=== PATIENT | male | born 1985 | race Caucasian/White ===

== ENCOUNTER 2017-02-19 13:05 | Day surgery (SDC) | payer BC, MEDICAID, OTHER ==
[~2017-02-19] VITALS: Ht 172.7 cm; Wt 161.7 kg
[2017-02-19] MEDS ORDERED: ibuprofen (15:16)
[2017-02-19 15:18] VITALS: Ht 172.7 cm; Wt 161.7 kg
[2017-02-19] MEDS ORDERED: PROPOFOL 20 ML ONE (15:39)
[2017-02-19] MEDS ORDERED: LIDOCAINE 2% (SDV) 5 ML INJ ONE (15:40)
[2017-02-19] MEDS ORDERED: MIDAZOLAM 1 MG/ML 2 ML INJ ONE (15:40)
[2017-02-19 15:52] VITALS: BP 119/55; PULSE 63; RESP 18
[2017-02-19 17:00] VITALS: BP 138/89; PULSE 62; RESP 12
--- NOTE | 2017-02-19 22:17 | GILP ---
DATE OF PROCEDURE: 02/19/2017 DATE: 02/19/2017. NAME OF PROCEDURE: Colonoscopy with biopsies. SURGEON: Silvia José MD. PREMEDICATION: Monitored anesthesia care by anesthesiologist. INSTRUMENT USED: Olympus colonoscope. PREPARATION: Adequate. TECHNIQUE: After informed consent, with the patient/relatives understanding the procedure, its indic ations potential risks and complications, including but not limited to: allergic reaction, bleeding, perforation, infection, missed lesions, and after all pertinent questions were answered to the daniela ent's satisfaction, the patient/relatives signed the witnessed informed consent. Following this, premedication was administered slowly IV push by under careful cardiovascular and re spiratory monitoring with pulse oximetry, automatic blood pressure and nailer machine. Once the sedati ve effect was achieved, the patient was placed in the left lateral decubitus position, digital recta l examination was performed. The colonoscope was then introduced and advanced under visual control throughout all segments of the colon including: the rectum, sigmoid, descending colon, splenic flexu re, transverse colon, hepatic flexure, ascending colon and finally reaching the cecum which was sherly rly identified by transillumination, finger indentation and the ileocecal valve. Careful examinatio n of the mucosa of the lower gastrointestinal tract both on insertion as well as withdrawal of the i nstrument disclosed the following findings: Rectal Examination: No evidence of perirectal disease, no masses. Colonic Mucosa: The colonic mucosa is remarkable for erythema, edema, and submucosal hemorrhagic ch anges in a segmental distribution in the sigmoid colon. The area coincides with what had previously been thought to represent diverticulitis. I see only occasional diverticula in the area and there is no luminal compromise at this point. The remainder of the colon mucosa is entirely unremarkable. The ileocecal valve was clearly identified and appears unremarkable. The instrument was withdrawn reexamining the mucosa in detail. No additional abnormalities are noted with the exception of mode rate sized internal hemorrhoids. The instrument was then withdrawn, the patient tolerated the procedure well and was transferred out of the [facility]oscopy Suite awake and in good condition to continue recovery under observation. IMPRESSION: Segmental erythema, some mucosal hemorrhagic changes in the sigmoid colon. Residual fr om previous episode of diverticulitis versus possibility of segmental inflammatory bowel disease. B iopsies obtained. PLAN: Pathology will be reviewed as soon as available. The patient will be followed up as an outpa tient. Further recommendation will depend on the patient's clinical course as well as review of pat treygy. Dictated By: SILVIA JOSÉ MS/NTS Conf#: [id number] DID#: [id number] CC: SILVIA JOSÉ;*EndCC*
== END 2017-02-19 17:28 | disposition home or self-care (01) ==
LOC: GIL 13:05
PROVIDERS: ATTEND Internal Medicine Gastroenterology
DX: K57.90 Diverticulosis of intestine, part unspecified, without perforation or abscess without bleeding (principal); I10 Essential (primary) hypertension; E78.5 Hyperlipidemia, unspecified; E66.01 Morbid (severe) obesity due to excess calories; Z68.43 Body mass index [BMI] 50.0-59.9, adult
CPT/HCPCS: 45380; 88305; J2250; Z7610

== ENCOUNTER 2018-01-03 03:03 | Emergency (ER) | END 2018-01-03 05:41 | disposition left against medical advice (07) ==